=== PATIENT | male | born 1960 | race Caucasian/White ===

== ENCOUNTER 2022-05-18 12:19 | Outpatient (CLI) | payer MEDICARE, SELFPAY ==
--- NOTE | 2022-05-18 12:29 | XR_ITS ---
WS: [id number] XR hip BI 3-4V wo/w pel [id number] REASON FOR EXAM: PAIN IN R L HIPS FINDINGS: Hips are symmetric in appearance. RIGHT HIP: The right hip joint space is relatively well preserved. There is a moderate subchondral sclerosis in the acetabulum with mild to moderate marginal osteophyto sis. The femoral head head, neck, and proximal right femur are unremarkable.. No soft tissue abnormality. XR/XR hip BI 3-4V wo/w pel [id number] IMPRESSION: Mild/moderate osteoarthritis of the right hip. LEFT HIP: Left hip joint space is relatively well preserved. Moderate subchondral scleros is and marginal osteophytosis of the acetabulum. Femoral head, neck, and proximal left femur are unremarkable. No soft tissue abnormality. IMPRESSION: Mild to moderate osteoarthritis of the left hip.
== END 2022-05-18 12:20 | disposition home or self-care (01) ==
LOC: RAD 12:21
PROVIDERS: PCP Nurse Practitioner Primary Care; Visit Provider Anesthesiology Pain Medicine
DX: M25.551 Pain in right hip (principal); M16.12 Unilateral primary osteoarthritis, left hip
CPT/HCPCS: 73522